=== PATIENT | male | born 1940 | race Caucasian/White ===

== ENCOUNTER → 2018-12-29 08:10 | Outpatient (POV) | payer MEDICARE, SELFPAY | PROVIDERS: Visit Provider Dentist | DX: Z00.00 Encounter for general adult medical examination without abnormal findings (principal) ==

== ENCOUNTER → 2019-12-12 10:49 | Outpatient (CLI) | payer MEDICARE, SELFPAY ==
[2019-12-12 11:32] LABS: Basophils % 0.4 % (0.1-2.0); Hematocrit 42.6 % (42.0-52.0); Hemoglobin 13.9 g/dL (14.1-18.0); Lymphocytes # 1.2 K/mm3 (0.7-4.5); Lymphocytes % 28.3 % (10-50); Mean Corpuscular HGB Conc 32.7 g/dL (31.8-35.4); Mean Corpuscular Hemoglobin 32.7 pg (27.0-31.2); Mean Corpuscular Volume 99.9 fl (80-94); Mean Platelet Volume 8.9 fl (7.4-10.4); Monocytes # 0.2 K/mm3 (0.1-1.0); Monocytes % 5.7 % (1.7-9.3); Neutrophils # 2.7 K/mm3 (1.8-7.8); Neutrophils % 64.5 % (37.0-80.0); Platelet Count 202 K/mm3 (142-424); Red Blood Count 4.27 M/mm3 (4.60-6.20); Red Cell Distribution Width 13.5 % (11.5-17.5); White Blood Count 4.1 K/mm3 (4.8-10.8)
[2019-12-12 14:42] LABS: Alanine Aminotransferase 31 U/L (21-72); Albumin Level 3.7 g/dL (3.4-5.0); Albumin/Globulin Ratio 1.3 (1.1-1.8); Alkaline Phosphatase 45 U/L (46-116); Anion Gap 13.7 mEq/L (5-15); Aspartate Amino Transferase 20 U/L (15-37); Bilirubin,Total 0.5 mg/dL (0.2-1.0); Blood Urea Nitrogen 18 mg/dL (7-18); Calcium 9.2 mg/dL (8.5-10.1); Carbon Dioxide 28 mmol/L (21.0-32.0); Chloride 108 mmol/L (98-107); Chol/HDL Ratio 4.1 (1-3.5); Cholesterol 190 mg/dL (140-200); Creatinine,Serum 1.26 mg/dL (0.70-1.30); Estimated Glomerular Filt Rate 55 ml/min (>60); GFR (African American) 67 ML/MIN (>60); Globulin 2.9 gm/dl (1.3-3.2); Glucose 94 mg/dL (74-106); HDL Cholesterol 46 mg/dL (27-67); LDL Cholesterol 115 mg/dL (0-130); Potassium 4.7 mmoL/L (3.5-5.1); Sodium 145 mmol/L (137-145); T4 (Thyroxine) 3.8 ug/dl (4.7-13.3); Thyroid Stimulating Hormone 2.21 uIU/ml (0.358-3.740); Total Protein,Serum 6.6 g/dL (6.4-8.2); Triglycerides 144 mg/dL (30-200); VLDL Cholesterol 29 mg/dL (0-40)
[2019-12-13 16:29] LABS: PSA, Free 0.15 ng/mL; Prostate Specific Ag 1.6 ng/mL (0.0-4.0); Vitamin B12 453 pg/mL (232-1245)
== END ==
PROVIDERS: PCP Physician Assistant; Visit Provider Physician Assistant
DX: E53.8 Deficiency of other specified B group vitamins (principal); R00.2 Palpitations; I10 Essential (primary) hypertension; J40 Bronchitis, not specified as acute or chronic
CPT/HCPCS: 36415; 80053; 80061; 82607; 84153; 84154; 84436; 84443; 85025; 93225; 93226

== ENCOUNTER → 2020-01-02 07:43 | Outpatient (CLI) | payer SELFPAY ==
--- NOTE | 2020-01-02 07:44 | CT_ITS ---
PROCEDURE: CT HEART W CALCIUM SCORE CLINICAL HISTORY: screening for heart disease COMPARISON: No exams were available for comparison TECHNIQUE: Axial images obtained with sagittal and coronal reformats. All CT scans at the facility use one or more dose reduction, viz: automated exposure control, ma/kV adjustment per patient size (including targeted exams where dose is matched to indication, i.e. head), or iterative reconstruction technique. FINDINGS: The coronary artery calcium score is 376. This indicates a moderate calcific plaque burden with high cardiovascular disease risk. There are fibrotic changes in the lung bases IMPRESSION: Moderate calcific plaque burden with high cardiovascular disease risk Dictated by: Alexis Almaguer MD 01/02/2020 13:37 Electronically signed by Alexis Almaguer MD in [place] 01/02/2020 13:37
== END ==
PROVIDERS: PCP Physician Assistant; Visit Provider Internal Medicine Cardiovascular Disease
DX: Z13.6 Encounter for screening for cardiovascular disorders (principal); R00.2 Palpitations; R94.31 Abnormal electrocardiogram [ECG] [EKG]
CPT/HCPCS: 75571

== ENCOUNTER → 2020-01-02 07:47 | Outpatient (CLI) | payer MEDICARE, SELFPAY ==
--- NOTE | 2020-01-02 07:47 | CA_ITS ---
APPROVED REPORT EXAM: Comprehensive 2D, Doppler, and color-flow Echocardiogram Slip Dumper: Gayle Mooney RVT Ht: 6 ft 1 in Wt: 222lbs BSA: 2.25 BP: 125/80 mmHg Indications: Chest Pain, Palpitations,Abn EKG, Ex Smoker 2D Dimensions LVOT 2.23 cm (M/F) 1.5-2.5 M-Mode Dimensions RVDd 2.80 cm (0.9-2.6) LVDd 3.23 cm (3.5-5.7) LVDs 2.00 cm (3.5-5.7) IVSd 0.98 cm (0.6-1.1) PWd 1.36 cm (0.6-1.1) EF (Teich) 69.70% FS 38.10% EDV (Teich) 41.90 mL ESV (Teich) 12.70 mL LV Diastology E/A Ratio 0.50 Mitral Valve MV A Velocity 66.00 (40-130 cm/s) Left Ventricle Left atrium is mildly enlarged, left ventricle is normal size, mild concentric left ventricular hypertrophy, visually estimated ejection fraction 50%, there appears to be mild distal septal hypokinesis. Grade 1 diastolic dysfunction seen without tissue Doppler evidence of raise left atrial pressure. Right Ventricle Right atrium and right ventricular normal size and contractility. Aortic Valve Aortic valve is minimally thickened and fibrosed, there is no aortic stenosis or aortic insufficiency. Mitral Valve Mitral valve is grossly normal, there is no mitral stenosis, there is mild mitral regurgitation. Tricuspid Valve Tricuspid valve is grossly normal, there is mild tricuspid regurgitation. Tricuspid regurgitation jet velocity is inadequate for calculation of the right ventricular systolic pressure. Pulmonic Valve Pulmonic valve is poorly visualized. Great Vessels Aortic root is normal size. Pericardium No significant pericardial effusion noted. Conclusion 1. Mildly enlarged left atrium, normal left ventricular size, mild concentric left ventricular hypertrophy, visually estimated ejection fraction 50% with mild distal septal wall hypokinesis. Grade 1 diastolic dysfunction seen without tissue Doppler evidence of raise left atrial pressure. 2. Mild mitral and tricuspid regurgitation. 3. No significant pericardial effusion noted. Electronically signed by : Kervin Cyr, 01/03/2020 05:39:26
== END ==
PROVIDERS: PCP Physician Assistant; Visit Provider Internal Medicine Cardiovascular Disease
DX: R00.2 Palpitations (principal); R94.31 Abnormal electrocardiogram [ECG] [EKG]; Z85.46 Personal history of malignant neoplasm of prostate
CPT/HCPCS: 93306

== ENCOUNTER → 2020-04-24 07:08 | Outpatient (CLI) | payer MEDICARE, SELFPAY ==
--- NOTE | 2020-04-24 | CA_ITS ---
APPROVED REPORT Exam: Exercise Treadmill Technologist: Tammie Zuniga Ht: 6 ft 1 in Wt: 220 lbs BSA: 2.24 m2 HR: 60 bpm BP: 151/85 mmHg Indications: Palpitations, Elevated CT Calcium Score Medical History Medications: Aspirin,,,,, Stress Test Details Test: Vernon HR Resting HR: 75 bpm Max Heart Rate (APMHR): 139 bpm Max HR Achieved: 143 bpm Target HR (85% APMHR): 118 bpm % of APMHR: 102 Recovery HR: 85 bpm BP Resting BP: 151.0/85.0 mmHg Max BP: 190.0/80.0 mmHg Recovery BP: 149.0/86.0 mmHg ECG Clinical Exercise duration: 05:30 min Highest Stage Achieved: Exercise capacity: 7.0 METs Stress ECG Conclusion Resting ECG: Normal sinus rhythm. Patient exercised 5:30 on Vernon Protocol. Test stopped due to shortness of air, leg fatigue. Symptoms: No chest pain. Arrhythmias/Ectopy: Frequent isolated PVCs in early recovery. ST-T Changes: Within normal ST response to exercise. Conclusion: Normal GXT. Myoview images reported separately. Electronically signed by : Kervin Cyr, 04/25/2020 10:23:11
--- NOTE | 2020-04-24 07:08 | NM_ITS ---
APPROVED REPORT Exam: Nuclear Stress Test Indication: PALPITATIONS, C.P., ELEVATED CALCIUM SCORE, FORMER TOB USER, FM HX Patient Location: Outpatient Stress Tech: Tammie Zuniga CO Tech:Lisa Marcelino ARRDarlin RT (R)(N)(M) Ht: 6 ft 1 in Wt: 220 lbs HR: 60 bpm BP: 151/85 mmHg BSA: 2.24 m2 BMI: 29.0 History: PALPITATIONS, C.P., ELEVATED CALCIUM SCORE, FORMER TOB USER, FM HX Procedure: Patient exercised on Vernon protocol 5:30 minutes and sec, resting heart rate 60 bpm, resting blood pressure 151/85 mmHg, with exercise maximum heart rate achived was 143 bpm which is Greater than 85 % of the maximum predicted heart rate and blood pressure was 190/80 mmHg. Test was stopped due to SOA, LEG FATIGUE. Patient has Adequate exercise capacity, achieved 7.0 METs of workload on treadmill, the blood pressure response to exercise was Normal. Electrocardiogram Resting electrocardiogram showed sinus rhythm, with exercise there is less than 1.[address] segment depression noted from the baseline EKG. The EKG portion of the exercise Myoview is negative for ischemia. Cardiac Stress and Resting SPECT Images: Cardiac Stress and Resting SPECT images were obtained using technetium 99m Myoview 31.1 mCi stress and 10.61 mCi at rest. Gated SPECT with analysis of segmental wall motion and calculation of the ejection fraction also done. Cardiac stress and resting SPECT images show a fixed defect involving the inferior and posterior wall consistent with the area of myocardial scarring without significant irene-infarct ischemia. Computer derived ejection fraction is 57% with moderate hypokinesis involving the inferior and posterior wall. Right ventricle is normal size and contractility. Conclusion: 1. The EKG portion of the exercise Myoview is negative for ischemia, patient has adequate exercise capacity achieved 7 mets of workload on treadmill, the blood pressure response to exercise was normal, there was no exercise-induced chest discomfort. 2. Scintigraphic evidence of myocardial scarring involving the inferior and posterior wall without significant irene-infarct ischemia, computer derived ejection fraction 57% with segmental wall motion abnormality described above, right ventricle is normal size and contractility. 3. Abnormal exercise Myoview study. Electronically signed by : Kervin Cyr, 04/25/2020 10:27:02
--- NOTE | 2020-04-24 07:24 | HMH.ITSHM ---
Current Home Medications as stated by this patient Atul Tan or desk representative. []asa
== END ==
PROVIDERS: PCP Physician Assistant; Visit Provider Physician Assistant
DX: R00.2 Palpitations (principal); R07.89 Other chest pain; R93.1 Abnormal findings on diagnostic imaging of heart and coronary circulation; Z85.46 Personal history of malignant neoplasm of prostate; Z87.891 Personal history of nicotine dependence
CPT/HCPCS: 78452; 93017; A9502

== ENCOUNTER → 2021-12-25 09:35 | Outpatient (CLI) | payer MEDICARE, SELFPAY ==
[2021-12-25 10:07] LABS: Basophils % 0.5 % (0.1-2.0); Eosinophils # 0.1 K/mm3 (0.0-0.4); Eosinophils % 2.5 % (0.1-12.0); Hematocrit 41.2 % (42.0-52.0); Hemoglobin 13.7 g/dL (14.1-18.0); Lymphocytes # 1.4 K/mm3 (0.7-4.5); Lymphocytes % 29.4 % (10-50); Mean Corpuscular HGB Conc 33.2 g/dL (31.8-35.4); Mean Corpuscular Hemoglobin 32.6 pg (27.0-31.2); Mean Corpuscular Volume 98.3 fl (80-94); Mean Platelet Volume 8.6 fl (7.4-10.4); Monocytes # 0.3 K/mm3 (0.1-1.0); Monocytes % 6.9 % (1.7-9.3); Neutrophils # 2.8 K/mm3 (1.8-7.8); Neutrophils % 60.6 % (37.0-80.0); Platelet Count 195 K/mm3 (142-424); Red Cell Distribution Width 13.3 % (11.5-17.5); White Blood Count 4.7 K/mm3 (4.8-10.8)
[2021-12-25 10:29] LABS: Chloride 104 mmol/L (98-107); Potassium 4.3 mmoL/L (3.5-5.1); Sodium 134 mmol/L (136-145)
[2021-12-25 10:31] LABS: Blood Urea Nitrogen 16 mg/dl (9-20); Estimated Glomerular Filt Rate 58 ml/min (>60); GFR (African American) 70 ML/MIN (>60)
[2021-12-25 10:32] LABS: Alanine Aminotransferase 32 U/L (12-78); Albumin Level 4.3 g/dl (3.5-5.0); Alkaline Phosphatase 49 U/L (38-126); Anion Gap 8.3 mEq/L (5-15); Aspartate Amino Transferase 38 U/L (17-59); Bilirubin,Direct 0.2 mg/dl (0.0-0.4); Bilirubin,Indirect 0.3 mg/dL (0.0-0.9); Bilirubin,Total 0.5 mg/dl (0.2-1.3); Bilirubin,Unconjugated 0.2 mg/dL (0.0-1.1); Calcium 8.6 mg/dl (8.4-10.2); Carbon Dioxide 26 mmol/L (22.0-30.0); Cholesterol 126 mg/dl (140-200); Glucose 97 mg/dl (74-100); Total Protein,Serum 6.8 g/dl (6.3-8.2); Triglycerides 153 mg/dl (30-150); VLDL Cholesterol 31 mg/dL (0-40)
[2021-12-25 10:33] LABS: Chol/HDL Ratio 2.8 (1-3.5); HDL Cholesterol 45 mg/dl (40-60)
[2021-12-25 10:45] LABS: Direct LDL Cholesterol 55.51 mg/dL (100-129)
[2021-12-25 10:51] LABS: Free Thyroxine Index 1.6 ug/dL (5.93-13.13); T4 (Thyroxine) 4.7 ug/dl (5.53-11.0); Triiodothryronine (T3) Uptake 34 % (23.5-40.5)
[2021-12-25 11:04] LABS: Thyroid Stimulating Hormone 4.42 uIU/mL (0.465-4.68)
[2021-12-25 15:12] LABS: Vitamin B12 419 pg/mL (239-931)
== END ==
PROVIDERS: Visit Provider Physician Assistant
DX: I25.10 Atherosclerotic heart disease of native coronary artery without angina pectoris (principal); R93.1 Abnormal findings on diagnostic imaging of heart and coronary circulation; R94.31 Abnormal electrocardiogram [ECG] [EKG]; Z85.46 Personal history of malignant neoplasm of prostate; Z87.891 Personal history of nicotine dependence; E78.5 Hyperlipidemia, unspecified; D53.9 Nutritional anemia, unspecified
CPT/HCPCS: 36415; 80048; 80061; 80076; 82607; 82746; 84436; 84443; 84479; 85025

== ENCOUNTER → 2021-12-29 10:38 | Outpatient (CLI) | payer MEDICARE, SELFPAY ==
--- NOTE | 2021-12-29 10:39 | CA_ITS ---
FINAL REPORT TECHNIQUE: Color Doppler, duplex Doppler and dockery scale sonography of the bilateral neck arterial vasculature was performed. Velocities were measured in the carotid arteries. Stenosis evaluation based on the validated velocity criteria. CLINICAL HISTORY: left carotid bruit, Abn screening exam, HLD FINDINGS: The peak systolic velocity of the right common carotid artery is 85 cm/s. The peak systolic velocity of the right internal carotid artery is 67 cm/s and end diastolic velocity 26 cm/s. The ICA/CCA ratio is 0.76. A mild amount of plaque is present. The right external carotid artery is patent. The right vertebral artery is patent with antegrade flow. The peak systolic velocity of the left common carotid artery is 72 cm/s. The peak systolic velocity of the left internal carotid artery is 79 cm/s and end diastolic velocity 23 cm/s. The ICA/CCA ratio is 1.11. A mild amount of plaque is present. The left external carotid artery is patent.The left vertebral artery is patent with antegrade flow. IMPRESSION: Less than 50% bilateral carotid stenosis. Bilateral patent vertebral arteries with antegrade flow. Reviewed, Interpreted and Dictated by Edouard Bojorquez III, MD Transcribed by Celia Miller Authenticated by Edouard Bojorquez III, MD on 12/29/2021 12:12:[address] [facility]
== END ==
PROVIDERS: PCP Physician Assistant; Visit Provider Physician Assistant
DX: R09.89 Other specified symptoms and signs involving the circulatory and respiratory systems (principal)
CPT/HCPCS: 93880

== ENCOUNTER 2022-06-19 08:54 | Emergency (ER) | payer MEDICARE, SELFPAY ==
[2022-06-19 09:13] VITALS: BP 121/73; PULSE 76; RESP 21; TEMP 36.6; O2SAT 95; BMI 27.4
[2022-06-19 09:21] LABS: UTC Strep Screen (Rapid) Negative (Negative)
--- NOTE | 2022-06-19 09:27 | HMH.EDUTC ---
[facility] Disposition Clinical Impression: Pharyngitis Qualifiers: Pharyngitis/tonsillitis etiology: unspecified etiology Qualified Code(s): J02.9 - Acute pharyngitis, unspecified Disposition: Home, Self-Care Condition on Discharge: Good Instructions: DI for Pharyngitis/Tonsillopharyngitis -- Adult Additional Instructions: Drink plenty of fluids. Take tylenol or ibuprofen for pain or fever. Take the medications as directed. Follow up with your regular doctor. GO TO THE ER FOR ANY WORSENING SYMPTOMS Prescriptions: methylPREDNISolone [Medrol] 4 mg PO DIRECTED 6 Days #21 packet [facility]: [id number] guaiFENesin [Mucinex 600mg tablet] 1 - 2 tab PO BIDP PRN #30 tab PRN Reason: Congestion Transmission Status: [id number] Azithromycin [Z-Brendon 250mg Tab*] 250 mg PO UD DOSE PK #6 tab Transmission Status: [id number] Referrals: Sharmila Du PA [Primary Care Provider] - Time of Disposition: 09:38 Medical Decision Making - Medical Records Medical records reviewed: No: I reviewed the patient's medical records. - Pérez Inquiry Pt receiving controlled substance: No Vital Signs: 06/19/22 09:13 06/19/22 09:45 Temperature 97.9 F 97.9 F Temperature Source Oral Oral Pulse Rate 74 Pulse Rate [Left Radial] 76 Respiratory Rate 21 20 Blood Pressure 119/70 Blood Pressure [Right Arm] 121/73 Blood Pressure Mean [Right Arm] 89 02 Sat by Pulse Oximetry 95 Oxygen Delivery Method Room Air Room Air - Lab Data Lab Results 06/19/22 09:14: Strep Scn Rapid Clinic Negative Orders (Tests/Meds): ORDERS Category Date Time Status Covid-19 Nasal PCR ([facility]) Routine Lab 06/19/22 09:06 Received Strep Screen Confirmation Stat Micro 06/19/22 09:14 Received [facility] HPI - General Stated complaint: sore throat, fatigue Time Seen by Provider: 06/19/22 09:27 Mode of Arrival: Ambulatory Source of Information: Patient Limitations: No Limitations Description of Symptoms (Recalled from Triage Doc. by RN): pt to [facility] c/o sore throat and fatigue x2 days. HEENT Symptoms (Recalled from RN notes): Yes Resp Symptoms (Recalled from RN notes): No Skin Symptoms (Recalled from RN notes): No MS Symptoms (Recalled from RN notes): No Functional Status (Recalled from RN notes): na - History of Present Illness Provider Complaint: He c/o sore throat, sinus congestion, achiness and feeling bad for the past 2 days. He took a home covid-19 test that was negative. - Related Data Previous Rx's Medication Instructions Recorded aspirin 81 mg tablet,delayed 81 mg PO DAILY #30 tab 12/26/20 release atorvastatin 20 mg tablet 20 mg PO DAILY #30 tab 04/06/22 amlodipine 2.5 mg tablet See Rx Instructions .ROUTE 05/27/22 .COMPLEX #20 tab Azithromycin [Z-Brendon 250mg Tab*] 250 mg PO UD DOSE PK #6 tab 06/19/22 guaiFENesin [Mucinex 600mg tablet] 1 - 2 tab PO BIDP PRN #30 tab 06/19/22 methylPREDNISolone [Medrol] 4 mg PO DIRECTED 6 Days #21 06/19/22 packet Allergies Allergy/AdvReac Type Severity Reaction Status Date / Time No Known Allergies Allergy Verified 12/30/21 10:20 - Worker's Comp Is this a Worker's Comp case?: No [facility] History - Hepatitis A Screen Attestation statement:: This patient has been screened for Hepatitis A risk factors. I have reviewed the patient's past medical history: Yes Medical History: Reports:: Cancer, Hyperlipidemia, Hypertension, Palpitations Other Surgeries: Yes: Cancer Surgery Amputation: No Fractures: No - Social History Smoking Status: Former smoker Alcohol Intake: current Alcohol Intake Frequency:: holidays/special occasions only Substance Use Type: denies use Occupational Status: other Housing: house Family Hx:: Hypertension ROS Obtained: Yes All systems reviewed & no additional complaints - Constitutional Constitutional: Reports as per HPI - Eyes Eyes: Denies eye discharge -
[2022-06-19 09:45] VITALS: BP 119/70; PULSE 74; RESP 20; TEMP 36.6; O2SAT 96
== END 2022-06-19 09:46 | disposition home or self-care (01) ==
PROVIDERS: Emergency Provider Nurse Practitioner Family; PCP Physician Assistant
DX: J02.9 Acute pharyngitis, unspecified (principal); R53.83 Other fatigue
CPT/HCPCS: 87880; 99212; C9803; G0463; U0003; U0005

== ENCOUNTER → 2023-01-20 10:06 | Outpatient (CLI) | payer MEDICARE, SELFPAY ==
[2023-01-20 11:12] LABS: Alanine Aminotransferase 28 U/L (12-78); Albumin Level 4.3 g/dl (3.5-5.0); Alkaline Phosphatase 49 U/L (38-126); Aspartate Amino Transferase 38 U/L (17-59); Bilirubin,Direct 0.2 mg/dl (0.0-0.4); Bilirubin,Indirect 0.6 mg/dL (0.0-0.9); Bilirubin,Total 0.8 mg/dl (0.2-1.3); Bilirubin,Unconjugated 0.6 mg/dL (0.0-1.1); Chol/HDL Ratio 2.3 (1-3.5); Cholesterol 108 mg/dl (140-200); HDL Cholesterol 48 mg/dl (40-60); Total Protein,Serum 6.7 g/dl (6.3-8.2); Triglycerides 82 mg/dl (30-150); VLDL Cholesterol 16 mg/dL (0-40)
[2023-01-20 11:23] LABS: Direct LDL Cholesterol 45.69 mg/dL (100-129)
== END ==
PROVIDERS: PCP Physician Assistant; Visit Provider Nurse Practitioner
DX: I11.9 Hypertensive heart disease without heart failure (principal); E78.5 Hyperlipidemia, unspecified; I25.10 Atherosclerotic heart disease of native coronary artery without angina pectoris; R93.1 Abnormal findings on diagnostic imaging of heart and coronary circulation
CPT/HCPCS: 36415; 80061; 80076

== ENCOUNTER → 2023-10-20 23:07 | Outpatient (CLI) | payer MEDICARE, SELFPAY ==
[2023-10-20 18:15] LABS: Influenza A, PCR Not Detected (NotDetected); Influenza B, PCR Not Detected (NotDetected)
[2023-10-20 18:32] LABS: Basophils % 0.6 % (0.1-2.0); Eosinophils # 0.1 K/mm3 (0.0-0.4); Eosinophils % 2.2 % (0.1-12.0); Hematocrit 41.4 % (42.0-52.0); Lymphocytes # 1.3 K/mm3 (0.7-4.5); Lymphocytes % 20.4 % (10-50); Mean Corpuscular HGB Conc 33.7 g/dL (31.8-35.4); Mean Corpuscular Hemoglobin 33.9 pg (27.0-31.2); Mean Corpuscular Volume 100.6 fl (80-94); Mean Platelet Volume 10.4 fl (7.4-10.4); Monocytes # 0.8 K/mm3 (0.1-1.0); Monocytes % 12.1 % (1.7-9.3); Neutrophils # 4.1 K/mm3 (1.8-7.8); Neutrophils % 64.6 % (37.0-80.0); Platelet Count 183 K/mm3 (142-424); Red Blood Count 4.12 M/mm3 (4.60-6.20); Red Cell Distribution Width 13.5 % (11.5-17.5); White Blood Count 6.3 K/mm3 (4.8-10.8)
[2023-10-20 18:48] LABS: Alanine Aminotransferase 30 U/L (12-78); Albumin Level 4.4 g/dl (3.5-5.0); Albumin/Globulin Ratio 1.6 (1.1-1.8); Alkaline Phosphatase 65 U/L (38-126); Anion Gap 9.7 mEq/L (5-15); Aspartate Amino Transferase 38 U/L (17-59); Bilirubin,Total 0.4 mg/dl (0.2-1.3); Blood Urea Nitrogen 18 mg/dl (9-20); Calcium 9.4 mg/dl (8.4-10.2); Carbon Dioxide 26 mmol/L (22.0-30.0); Chloride 103 mmol/L (98-107); Chol/HDL Ratio 3.4 (1-3.5); Cholesterol 138 mg/dl (140-200); Estimated Glomerular Filt Rate 58 ml/min (>60); GFR (African American) 70 ML/MIN (>60); Globulin 2.8 g/dL (1.3-3.2); Glucose 101 mg/dl (74-100); HDL Cholesterol 41 mg/dl (40-60); Potassium 4.7 mmoL/L (3.5-5.1); Sodium 134 mmol/L (136-145); Total Protein,Serum 7.2 g/dl (6.3-8.2); Triglycerides 118 mg/dl (30-150); VLDL Cholesterol 24 mg/dL (0-40)
[2023-10-20 19:21] LABS: Direct LDL Cholesterol 72.72 mg/dL (100-129)
[2023-10-20 19:26] LABS: Free T4 (Free Thyroxine) 0.78 ng/dl (0.78-2.19)
[2023-10-20 19:40] LABS: Thyroid Stimulating Hormone 3.23 uIU/mL (0.465-4.68)
[2023-10-20 20:11] LABS: Coronavirus 19, PCR Detected (NotDetected)
== END ==
LOC: LAB.DROPOF 23:08
PROVIDERS: PCP Physician Assistant; Visit Provider Family Medicine
DX: J40 Bronchitis, not specified as acute or chronic (principal); I25.10 Atherosclerotic heart disease of native coronary artery without angina pectoris; E78.5 Hyperlipidemia, unspecified; U07.1 COVID-19; R05.9 Cough, unspecified; R06.7 Sneezing; R53.83 Other fatigue; J02.9 Acute pharyngitis, unspecified
CPT/HCPCS: 80053; 80061; 84439; 84443; 85025; 87636

== ENCOUNTER 2024-04-06 16:38 | Emergency (ER) | payer MEDICARE, SELFPAY ==
[2024-04-06 16:39] VITALS: BP 123/73; PULSE 120; RESP 18; TEMP 36.7; O2SAT 96; BMI 28.3
--- NOTE | 2024-04-06 16:43 | ECG_ITS ---
APPROVED REPORT Exam: Resting ECG HR:107 bpm ECG Measurements Heart Rate 107 AXES QRSd 109 QRS 28 QT 325 T 45 QTc 388 Conclusion ATRIAL FLUTTER/TACHYCARDIA WITH RAPID VENTRICULAR RESPONSE Electronically signed by : STEPHANIE HURT, 04/06/2024 23:45:00
[2024-04-06 16:45] VITALS: BP 123/73; PULSE 61; RESP 14; O2SAT 96
--- NOTE | 2024-04-06 16:45 | PC.NURSE ---
DR HURT AT BEDSIDE
--- NOTE | 2024-04-06 16:54 | XR_ITS ---
PROCEDURE INFORMATION: Exam: XR Chest Exam date and time: 04/06/2024 4:54 PM Age: 83 years old Clinical indication: Shortness of breath; Additional info: Palpitations, SOA TECHNIQUE: Imaging protocol: Radiologic exam of the chest. Views: 1 view. COMPARISON: CT HEART W CALCIUM SCORE 01/02/2020 8:06 AM FINDINGS: Lungs: Unremarkable. No consolidation. Pleural spaces: Unremarkable. No pleural effusion. No pneumothorax. Heart/Mediastinum: Unremarkable. No cardiomegaly. Bones/joints: Unremarkable. IMPRESSION: No acute findings.
--- NOTE | 2024-04-06 16:55 | HMH.EDGENADL ---
Discharge Plan Disposition Patient Disposition: Home, Self-Care Condition: Good Prescriptions Prescriptions: New Xarelto 20 mg tablet 20 mg PO DAILY Qty: 30 0RF Rx Instructions: must administer with evening meal diltiazem HCl 240 mg capsule,extended release 24 hr 240 mg PO DAILY Qty: 30 0RF No Action aspirin [Adult Low Dose Aspirin] 81 mg tablet,delayed release (DR/EC) 81 mg PO DAILY Qty: 30 5RF tqtlwbeknnqesgk-kefxfocru-VG [Bromfed DM] 2-30-10 mg/5 mL syrup 10 ml PO Q6H Qty: 118 0RF methylprednisolone [Medrol (Brendon)] 4 mg tablets,dose pack See Rx Instructions PO PER PKG DIR Qty: 21 0RF Rx Instructions: PO PER PKG DIR atorvastatin [Lipitor] 20 mg tablet 20 mg PO DAILY Qty: 90 3RF amlodipine 2.5 mg tablet 2.5 mg PO DAILY Qty: 90 3RF Referrals Follow up/Referrals: Sharmila Du PA [Primary Care Provider] - See instructions Niall Neumann MD [Staff Physician] - See instructions Gonzales Canas MD [Staff Physician] - See instructions Activity Restrictions/Add. Instructions Additional Instructions/Restrictions: You were evaluated in the emergency department today and diagnosed with atrial fibrillation. This is an irregular heartbeat. For this, we are prescribing you diltiazem, which slows down your heart rate. We are also prescribing you Xarelto, which thins your blood to prevent stroke. Please follow-up tomorrow in cardiology clinic at 10:[address] Neumann has advised they will see you at that time. Please bulk picker your prescriptions at the pharmacy and take them daily as prescribed. You were already given your doses today on 04/06/2024, so do not take any doses today. Monitor for any symptoms, such as chest pain, shortness of breath, lightheadedness, fainting, or other concerns. Should you develop any of the symptoms, please return to the emergency department right away. Being on a blood thinner increases your risk of bleeding, such as head bleeds and bleeding from traumatic injuries as well as bleeding in your stools from your intestines. Please monitor for any sources of bleeding and present to the emergency department right away if you experience any falls or traumatic injuries. Your kidney function was slightly off from your baseline, so please make sure that you are staying well-hydrated. This is probably because of the issue with your heart, but I recommend getting this rechecked by either your primary care provider or cardiology. Please return to the emergency department if you have any new concerns. We hope you feel better! Clinical Impressions Clinical Impression: Atrial fibrillation, MARGO (acute kidney injury) Instructions Patient Instructions: DI for Atrial Fibrillation, Rivaroxaban Discharge ED Provider: Cathryn Newman General Adult HPI General Chief complaint: Arrhythmia/Palpitations Stated complaint: weak, chest tightness Time Seen by Provider: 04/06/24 16:43 History of Present Illness HPI narrative: This patient is an 83-year-old male with a history of hypertension and hyperlipidemia not on anticoagulation presenting with concern for palpitations. He states for about 2-1/2 weeks, he is intermittently been having sensation that his heart is racing. He also states that he has significant dyspnea on exertion, even with minimal exertion, which is very much unlike him. He notes he is feeling very tired and fatigued. He states that he follows closely with cardiology every year and has never had issues like this in the past, but they did tell him to monitor for things like this. He denies any fevers, cough, abdominal pain, vomiting, changes in bowel movements, rashes, or swelling. No history of blood clots or clotting disorders. He does note some chest tightness associated with this. He denies any known history of cardiac dysrhythmias. Related Data Previous Rx's Medication Instructions Recorded aspirin 81 mg tablet,delayed 81 mg PO DAILY #30 tabs 12/26/20 release (Adult Low Dose Aspirin) atorvastatin 20 mg tablet (Lipitor) 20 mg PO DAILY #90 tabs 10/20/23 gezmnxadwsknojp-eezwijhuwknrwvh-GY 10 ml PO Q6H #118 mL 10/20/23 2 mg-30 mg-10 mg/5 mL oral syrup (Bromfed DM) methylprednisolone 4 mg tablets in See Rx Instructions PO PER PKG DIR 10/20/23 a dose pack (Medrol (Brendon)) #21 tabs amlodipine 2.5 mg tablet 2.5 mg PO DAILY #90 tabs 12/06/23 diltiazem HCl 240 mg capsule,24 240 mg PO DAILY #30 caps 04/06/24 hr,extended release rivaroxaban 20 mg tablet (Xarelto) 20 mg PO DAILY #30 tabs 04/06/24 Allergies Allergy/AdvReac Type Severity Reaction Status Date / Time No Known Allergies Allergy Verified 10/20/23 08:59 [facility] Disclaimer: The information contained in this section may have been updated after the patient was seen, as this information can be updated by other users. Medical History Dizziness Pharyngitis Agatston coronary artery calcium score between 200 and 399 Ex-smoker Atypical chest pain Abnormal EKG Hx of prostatic malignancy Palpitations Bronchitis Surgical History History of prostate surgery Social History Smoking Status: Never smoker alcohol intake: current alcohol intake frequency: holidays/special occasions only substance use type: denies use current occupational status: other Travel in the last 8 weeks: Inside the [facility] housing: house ROS Obtained: Yes All systems reviewed & no additional complaints except as documented Physical Exam General General appearance: alert and in no apparent distress Head Head exam: atraumatic and normocephalic Eye Eye exam: Present normal appearance, PERRL and EOMI ENT ENT exam: Present normal exam, normal oropharynx, mucous membranes moist and normal external ear exam Neck Neck exam: Present normal inspection, full ROM and trachea midline; Absent tenderness Chest Chest inspection: Present normal inspection and symmetric chest wall rise; Absent tenderness Respiratory Respiratory exam: Present normal lung sounds bilaterally; Absent respiratory distress, wheezes, stridor or accessory muscle use Cardiovascular Cardiovascular exam: Present tachycardia and irregular rhythm Abdominal Exam Abdominal exam: Present soft; Absent distention, tenderness or guarding Extremities Exam Extremities exam: Present normal inspection, full ROM and normal capillary refill; Absent tenderness or edema Back Exam Back exam: Present normal inspection and full ROM; Absent tenderness Neurological Exam Neurological exam: Present alert, oriented X3, CN II-XII intact and normal gait; Absent motor sensory deficit Psychiatric Psychiatric exam: Present normal affect and normal mood Skin Skin exam: Present warm and dry Medical Decision Making Medical Records Medical records reviewed: Yes I reviewed the patient's medical records. Pérez Inquiry Pt receiving controlled substance: No Vital Signs: 04/06/24 16:39 04/06/24 16:45 04/06/24 17:00 Temperature 98.1 F Temperature Source Oral Pulse Rate 61 138 H Pulse Rate [Apical] 120 H Respiratory Rate 18 14 18 Blood Pressure 123/73 112/64 Blood Pressure [Right Arm] 123/73 Blood Pressure Mean [Right Arm] 89 Blood Pressure Source [Right Arm] Automatic Cuff Blood Pressure Position [Right Arm] Sitting 02 Sat by Pulse Oximetry 96 96 95 Oxygen Delivery Method Room Air 04/06/24 17:30 04/06/24 17:45 Temperature Temperature Source Pulse Rate 71 68 Pulse Rate [Apical] Respiratory Rate 13 10 L Blood Pressure 107/65 L 106/66 L Blood Pressure [Right Arm] Blood Pressure Mean [Right Arm] Blood Pressure Source [Right Arm] Blood Pressure Position [Right Arm] 02 Sat by Pulse Oximetry 97 96 Oxygen Delivery Method Room Air Lab Data Lab results reviewed: Yes I reviewed the patient's lab results. Lab Results 04/06/24 16:50: WBC 5.4, RBC 4.13 L, Hgb 13.5 L, Hct 42.2, MCV 102.2 H, MCH 32.7 H, MCHC 32.0, RDW 13.8, Plt Count 200, MPV 8.9, Neut % (Auto) 57.1, Lymph % (Auto) 33.7, [place] % (Auto) 6.3, Eos % (Auto) 2.0, Baso % (Auto) 0.9, Neut # (Auto) 3.1, Lymph # (Auto) 1.8, [place] # (Auto) 0.3, Eos # (Auto) 0.1, Baso # (Auto) 0.1, PT 12.1, INR 1.13 H, APTT 29.3, D-Dimer 0.56 H, Sodium 137, Potassium 4.2, Chloride 107, Carbon Dioxide 20 L, Anion Gap 14.2, BUN 21 H, Creatinine 1.50 H, Estimated Creat Clear 50, Estimated GFR 44 L, Est GFR ( Amer) 54 L, Glucose 102 H, Calcium 9.5, Magnesium 2.0, Total Bilirubin 0.6, AST 34, ALT 28, Alkaline Phosphatase 55, Troponin I < 0.01, NT-Pro-B Natriuret Pep 38.1, Total Protein 7.3, Albumin 4.4, Globulin 2.9, Albumin/Globulin Ratio 1.5, TSH 3.99, Thyroxine (T4) 6.3 04/06/24 16:50 04/06/24 16:50 Orders (Tests/Meds): ED MEDICATIONS Discontinued Medications Generic Name Dose Route Start Last Admin Trade Name Henriqueq PRN Reason Stop Dose Admin Diltiazem HCl 10 mg 04/06/24 17:05 04/06/24 17:11 Diltiazem 25mg/5ml Vial IV 04/06/24 17:06 10 mg ONCE ONE Administration Diltiazem HCl 240 mg 04/06/24 17:20 04/06/24 17:34 Diltiazem Er 120mg Capsule PO 04/06/24 17:21 240 mg ONCE ONE Administration Rivaroxaban 20 mg 04/06/24 17:20 04/06/24 17:34 Rivaroxaban 10mg Tablet PO 04/06/24 17:21 20 mg ONCE ONE Administration ORDERS Category Date Time Status CXR --portable [XR chest portable] Stat Exams 04/06/24 16:54 Completed BNP [NT Pro Brain Natriuretic Pep.] Stat Lab 04/06/24 16:50 Completed Complete Blood Count Auto Diff Stat Lab 04/06/24 16:50 Completed Comprehensive Metabolic Panel Stat Lab 04/06/24 16:50 Completed D-Dimer Stat Lab 04/06/24 16:50 Completed Magnesium Stat Lab 04/06/24 16:50 Completed PT INR [Prothrombin Time INR] Stat Lab 04/06/24 16:50 Completed PTT [Activated Partial Thrombo Time] Stat Lab 04/06/24 16:50 Completed T4 (Thyroxine) Stat Lab 04/06/24 16:50 Completed TSH [Thyroid Stimulating Hormone] Stat Lab 04/06/24 16:50 Completed Trop I [Troponin I] Stat Lab 04/06/24 16:50 Completed Troponin I Q3H Lab 04/06/24 19:15 Received Troponin I Q3H Lab 04/06/24 23:00 Ordered ECG Data Tracing #1: I reviewed this ECG and interpreted as documented below: Atrial tachycardia with RVR with a ventricular rate of [address] changes concerning for ischemia. ECG initial impression date: 04/06/24 ECG initial impression time: 16:45 Tracing #2: I reviewed this ECG and interpreted as documented below: Atrial fibrillation with a ventricular rate of [address] changes concerning for ischemia. PVC noted. ECG initial impression date: 04/06/24 ECG initial impression time: 17:27 Tracing #3: I reviewed this ECG and interpreted as documented below: Sinus rhythm with a ventricular rate of 67 bpm. First-degree AV block with a NV interval of [address] changes concerning for ischemia. ECG initial impression date: 04/06/24 ECG initial impression time: 17:36 HEART Score History (anamnesis): Slightly suspicious ECG: Non-specific disturbance Age: >65 years Risk factors: 1-2 risk factors Troponin: </= normal limit HEART Score: 4 Medical Decision Narrative: In summary, this patient is a 83 year old male presenting to the Emergency Department for evaluation of palpitations, dyspnea on exertion, and chest tightness. Differential diagnoses considered include but are not limited to ACS, dysrhythmia, GERD, costochondritis, electrolyte derangements, PE. Ruling out the most morbid conditions drove assessment. It should be noted patient's history includes hypertension and hyperlipidemia which are reportedly at goal therapy. This complicates all aspects of care by increasing patient's risk for morbidity. I reviewed patient's past medical records and noted previous cardiology evaluation back in August 23 with no mention of prior dysrhythmia at that time. I reviewed patient's medication list and noted that he is not on anticoagulation. He does take amlodipine and atorvastatin as well as half a baby aspirin.. On exam, the patient is resting comfortably in bed in no acute distress. He has an irregularly irregular heartbeat with heart rate ranging from the low 100s to 130 on cardiac telemetry s. He is otherwise hemodynamically stable. EKG demonstrates irregularly irregular rhythm with some flutter P waves noted. No acute ST changes concerning for ischemia. Workup included CBC, CMP, TSH, T4, BNP, magnesium, troponin, PT, PTT, chest x-ray. I independently interpreted chest x-ray prior to the radiologist read and noted pulmonary edema, focal consolidation, or other concerns. Please see their read for final interpretation. Labs were obtained that demonstrated very mild MARGO with creatinine of 1.5 from a baseline of 1.2. Labs otherwise reassuring. Initial troponin is negative. Age adjusted D-dimer negative. Patient was given 10 mg of IV diltiazem for atrial tachycardia with rapid ventricular response. Initially, he had changed to a rate controlled atrial fibrillation with a rate of 72 bpm. On repeat ECG afterward, he had converted to a normal sinus rhythm with a first-degree AV block with a NV interval of 217 ms. He remained hemodynamically stable without significant change in his blood pressure throughout this time. I called and had an interactive discussion with corporate bond trader, Dr. Neumann. He advised that since the patient had such good response to diltiazem, we can give him 2 and 40 mg of oral diltiazem as well as 20 mg of oral Xarelto and have him follow-up at 10 AM in clinic tomorrow. Patient is agreeable with this. I would like to watch the patient a little bit longer to make sure that he tolerates his medications well. I had a very long discussion with the patient regarding the risk of starting anticoagulation with Xarelto. [id number] score is 3, which is moderate high risk for stroke with atrial fibrillation. Has bled score for major bleeding is 1 given patient's age. He has no history of bleeding in the past, no history of coagulopathy, no significant liver or kidney history. Blood pressure is very well-controlled. After discussion of risk versus benefit, patient would like to proceed with anticoagulation to minimize risk of stroke based on cardiology recommendations. At 1745, patient was placed in ED observation status pending second troponin and monitoring of his hemodynamic status to determine whether or not the patient would be appropriate for discharge versus admission. The patient was provided serial reevaluations and cardiac monitoring while awaiting ultimate disposition. At 1930, second troponin resulted as negative. Patient has been resting comfortably in normal sinus rhythm with heart rate in the 60s to 70s. He has been normotensive with maps in the 70s. He is asymptomatic and is resting comfortably, eating and drinking without difficulty. Given reassuring workup and exam and the fact that he has close follow-up with cardiology tomorrow, I feel that the patient is appropriate for discharge home with prescriptions for Xarelto and diltiazem. I given very strict return precautions and advised him of symptoms to look out for with regards to bleeding on Xarelto as well as with regards to palpitations, lightheadedness, or symptoms of low blood pressure while on diltiazem. Patient was given strict return precautions and was discharged with plan to see cardiology in the morning. Total ED observation time was 1 hour 45 minutes. Critical Care Critical Care Time Critical Care Time: Yes Attestation: On 04/06/24, the high probability of a clinically significant, sudden or life threatening deterioration of the following system(s) required my full and direct attention, intervention and personal management. The time I documented below is in addition to time spent performing reported procedures but includes the following listed in this critical care notation. Total Time Total Critical Care Time: 30
[2024-04-06 17:00] VITALS: BP 112/64; PULSE 138; RESP 18; O2SAT 95
[2024-04-06 17:01] LABS: Basophils # 0.1 K/mm3 (0-0.2); Basophils % 0.9 % (0.1-2.0); Eosinophils # 0.1 K/mm3 (0.0-0.4); Hematocrit 42.2 % (42.0-52.0); Hemoglobin 13.5 g/dL (14.1-18.0); Lymphocytes # 1.8 K/mm3 (0.7-4.5); Lymphocytes % 33.7 % (10-50); Mean Corpuscular Hemoglobin 32.7 pg (27.0-31.2); Mean Corpuscular Volume 102.2 fl (80-94); Mean Platelet Volume 8.9 fl (7.4-10.4); Monocytes # 0.3 K/mm3 (0.1-1.0); Monocytes % 6.3 % (1.7-9.3); Neutrophils # 3.1 K/mm3 (1.8-7.8); Neutrophils % 57.1 % (37.0-80.0); Platelet Count 200 K/mm3 (142-424); Red Blood Count 4.13 M/mm3 (4.60-6.20); Red Cell Distribution Width 13.8 % (11.5-17.5); White Blood Count 5.4 K/mm3 (4.8-10.8)
[2024-04-06 17:04] LABS: Chloride 107 mmol/L (98-107); Potassium 4.2 mmoL/L (3.5-5.1); Sodium 137 mmol/L (136-145)
[2024-04-06 17:07] LABS: Alanine Aminotransferase 28 U/L (12-78); Albumin Level 4.4 g/dl (3.5-5.0); Albumin/Globulin Ratio 1.5 (1.1-1.8); Alkaline Phosphatase 55 U/L (38-126); Anion Gap 14.2 mEq/L (5-15); Aspartate Amino Transferase 34 U/L (17-59); Bilirubin,Total 0.6 mg/dl (0.2-1.3); Blood Urea Nitrogen 21 mg/dl (9-20); Calcium 9.5 mg/dl (8.4-10.2); Carbon Dioxide 20 mmol/L (22.0-30.0); Estimated Glomerular Filt Rate 44 ml/min (>60); GFR (African American) 54 ML/MIN (>60); Globulin 2.9 g/dL (1.3-3.2); Glucose 102 mg/dl (74-100); Total Protein,Serum 7.3 g/dl (6.3-8.2)
[2024-04-06 17:10] LABS: Activated Partial Thrombo Time 29.3 seconds (22.8-30.6); INR 1.13 (0.9-1.1); Prothrombin Time 12.1 seconds (10.1-12.5)
[2024-04-06] MEDS: dilTIAZem 25MG/5ML VIAL 10 MG IV (17:11)
[2024-04-06 17:16] LABS: Creatinine Clearance Estimated 50 mL/min (50-200)
[2024-04-06 17:18] LABS: NT Pro Brain Natriuretic Pep. 38.1 pg/mL (0-450)
--- NOTE | 2024-04-06 17:19 | PC.NURSE ---
DR HURT SPEAKING WITH CARDIOLOGY
--- NOTE | 2024-04-06 17:21 | PC.NURSE ---
DR HURT AT BEDSIDE TO UPDATE PT
[2024-04-06 17:25] LABS: T4 (Thyroxine) 6.3 ug/dl (5.53-11.0)
--- NOTE | 2024-04-06 17:26 | ECG_ITS ---
APPROVED REPORT Exam: Resting ECG HR:72 bpm ECG Measurements Heart Rate 72 AXES QRSd 104 QRS 42 QT 378 T 39 QTc 402 Conclusion ATRIAL FIBRILLATION WITH ABERRANT CONDUCTION OR VENTRICULAR PREMATURE COMPLEXES ABNORMAL RHYTHM ECG Electronically signed by : STEPHANIE HURT, 04/06/2024 23:44:41
[2024-04-06 17:28] LABS: Troponin I < 0.01 ng/ml (0.00-0.034)
[2024-04-06 17:30] VITALS: BP 107/65; PULSE 71; RESP 13; O2SAT 97
[2024-04-06] MEDS: RIVAROXABAN 10MG TABLET 20 MG PO (17:34)
[2024-04-06] MEDS: dilTIAZem ER 120MG CAPSULE 240 MG PO (17:34)
--- NOTE | 2024-04-06 17:36 | ECG_ITS ---
APPROVED REPORT Exam: Resting ECG HR:67 bpm ECG Measurements Heart Rate 67 AXES WI 217 P 45 QRSd 103 QRS 19 QT 376 T 36 QTc 392 Conclusion SINUS RHYTHM WITH FIRST DEGREE AV BLOCK ABNORMAL ECG Electronically signed by : STEPHANIE HURT, 04/06/2024 23:44:32
[2024-04-06 17:38] LABS: Thyroid Stimulating Hormone 3.99 uIU/mL (0.465-4.68)
[2024-04-06 17:45] VITALS: BP 106/66; PULSE 68; RESP 10; O2SAT 96
[2024-04-06 17:56] LABS: D-Dimer 0.56 ug/mL (0.0-0.5)
--- NOTE | 2024-04-06 19:33 | PC.NURSE ---
Pt updated on status, awaiting 2nd trop, no needs at this time
[2024-04-06 19:43] VITALS: BP 107/65; PULSE 68; RESP 16; TEMP 36.7; O2SAT 97
[2024-04-06 19:44] LABS: Troponin I < 0.01 ng/ml (0.00-0.034)
== END 2024-04-06 19:43 | disposition home or self-care (01) ==
PROVIDERS: Emergency Provider Emergency Medicine; PCP Physician Assistant
DX: I48.91 Unspecified atrial fibrillation (principal); I49.3 Ventricular premature depolarization; I44.0 Atrioventricular block, first degree; N17.8 Other acute kidney failure; I10 Essential (primary) hypertension; E78.5 Hyperlipidemia, unspecified
CPT/HCPCS: 71045; 80053; 83735; 83880; 84436; 84443; 84484; 85025; 85378; 85610; 85730; 93005; 96374; 99285

== ENCOUNTER 2024-04-07 10:21 | Outpatient (CLI) | payer MEDICARE, SELFPAY | END 2024-04-07 23:59 | disposition home or self-care (01) | LOC: RT 10:22 | PROVIDERS: PCP Physician Assistant; Visit Provider Nurse Practitioner | DX: R00.2 Palpitations (principal); I10 Essential (primary) hypertension; I25.10 Atherosclerotic heart disease of native coronary artery without angina pectoris; R93.1 Abnormal findings on diagnostic imaging of heart and coronary circulation; R94.31 Abnormal electrocardiogram [ECG] [EKG]; R06.00 Dyspnea, unspecified; I48.91 Unspecified atrial fibrillation | CPT/HCPCS: 93270 ==

== ENCOUNTER 2024-04-10 07:51 | Outpatient (CLI) | payer MEDICARE, SELFPAY ==
--- NOTE | 2024-04-10 07:56 | CT_ITS ---
FINAL REPORT TECHNIQUE: Postcontrast axial images of the chest were performed in a CTA protocol. This study was performed with techniques to keep radiation doses as low as reasonably achievable, (ALARA). Individualized dose reduction technique using automated exposure control or adjustment of mA and/or kV according to the patient's size were employed. CLINICAL HISTORY: elevated d dimer FINDINGS: The heart is normal in size. No adenopathy is identified. No pleural or pericardial effusion is identified. The thoracic aorta is normal in caliber with no focal aneurysm or dissection identified. There is no filling defect to suggest pulmonary embolism. There is a calcified granuloma in the left upper lobe. There is mild bibasilar atelectasis or scarring. The lungs are otherwise clear. The images of the upper abdomen are unremarkable. IMPRESSION: No evidence for PE on this exam. Mild bibasilar atelectasis or scarring. Reviewed, Interpreted and Dictated by Edouard Bojorquez III, MD Transcribed by Mari Ware Authenticated and [facility]
[2024-04-10] MEDS: 0.9 % SODIUM CHLORIDE 50 ML VIAL IV (08:34)
[2024-04-10] MEDS: SODIUM CHLORIDE 0.9% 10ML SYR (RAD ONLY) 10 ML IV ×3 (08:34→14:04)
[2024-04-10] MEDS: IOPAMIDOL-370 (76%);100ML BOTTLE 70 ML IV (08:34)
--- NOTE | 2024-04-10 12:49 | NM_ITS ---
APPROVED REPORT Exam: Nuclear Stress Test Indication: FM HX, SOB, PALPITATIONS, FATIGUE Patient Location: Outpatient Stress Tech: Tammie Zuniga NM Tech:Anahy Pak, ARRT, RT (R)(N) Ht: 6 ft 1 in Wt: 215 lbs HR: 64 bpm BP: 134/80 mmHg BSA: 2.22 m2 TID: 1.21 BMI: 28.3 History: FM HX, SOB, PALPITATIONS, FATIGUE Procedure: Patient received 0.4 mg of intravenous AdenosineLexiscan, resting heart rate 64 bpm, resting blood pressure 134/80 mmHg, with Lexiscan maximum heart rate achieved was 93 bpm which is % of the maximum predicted heart rate and blood pressure was 134/80 mmHg. With Lexiscan, patient denied any complaint of chest pain. Cardiac Stress and Resting SPECT Images: Cardiac Stress and Resting SPECT images were obtained using technetium 99m Myoview 32.0 mCi stress and 10.19 mCi at rest. Raw images demonstrate significant diaphragmatic overlap with the inferior border of the LV jacobs. This may affect the diagnostic interpretation of the study findings. Resting and stress imaging in supine positions demonstrate a large sized, moderate, fixed perfusion defect in the inferior LV wall. This is no longer visualized with prone stress imaging. Findings are suggestive of diaphragmatic attenuation. There is also increase in transient ischemic dilatation ratio (TID 1.21), suggestive of possible multivessel disease or balanced ischemia. Gated imaging demonstrates normal global and regional LV systolic function. LVEF is calculated at 53%. Conclusion: Diaphragmatic attenuation is present. No focal fixed or reversible perfusion defects. Increase in transient ischemic dilatation ratio (TID 1.21), suggestive of possible multivessel disease or balanced ischemia. Gated imaging demonstrates normal global and regional LV systolic function. LVEF is calculated at 53%. Electronically signed by : Laura Canas MD 04/11/2024 14:45:26
--- NOTE | 2024-04-10 12:54 | CA_ITS ---
APPROVED REPORT EXAM: Comprehensive 2D, Doppler, and color-flow Echocardiogram Brand Communications Manager: Sully Mcnamara RDCS Ht: 6 ft 1 in Wt: 214lbs BSA: 2.21 BP: 94/58 mmHg Indications: ABN EKG,AF,HTN,HLP,PALPS M-Mode Dimensions RVDd 2.47 cm (0.9-2.6) LA Diam 3.43 cm (1.9-4.0) LVDd 5.43 cm (3.5-5.7) LVDs 3.23 cm (3.5-5.7) IVSd 0.76 cm (0.6-1.1) PWd 0.57 cm (0.6-1.1) EF (Teich) 70.70% FS 40.50% EDV (Teich) 143.10 mL ESV (Teich) 41.90 mL LV Diastology E Decel Time 283 (160-240 msec) E/A Ratio 0.5 Mitral Valve MV E Max Jose Luis. 37.0 (40-130 cm/s) MV A Velocity 73.0 (40-130 cm/s) E/A Ratio 0.51 MV PHT 83.0 ms Left Ventricle The left ventricle is normal size. The left ventricular systolic function is normal. The left ventricular ejection fraction is within the normal range. Proximal septal thickening is noted. There is normal LV segmental wall motion. The left ventricular diastolic function is normal. LVEF is 55%. Right Ventricle Right ventricle is moderately dilated. Right ventricle is mildly hypokinetic. The RV wall thickness is increased. Atria The left atrium size is normal. The right atrium is mildly dilated. There is no Doppler evidence of interatrial shunt. Aortic Valve The aortic valve opens well. There is no aortic valvular stenosis. No aortic regurgitation is present. Mitral Valve The mitral valve is normal in structure. No evidence of mitral valve stenosis. There is no mitral valve regurgitation noted. Tricuspid Valve Trace tricuspid regurgitation. There is insufficient TR jet to estimate RVSP. Pulmonic Valve The pulmonary valve is normal in structure. Trace pulmonic regurgitation. Great Vessels The aortic root is borderline dilated measuring 4.2 cm in diameter. The ascending aorta is not well-visualized. IVC is normal in size and collapses >50% with inspiration. Pericardium There is no pericardial effusion. Conclusion Normal LV systolic function. Moderate RV dilation with mild reduction in RV function. No significant valvular stenosis or regurgitation. Electronically signed by : Laura Canas MD 04/12/2024 11:05:29
[2024-04-10] MEDS: REGADENOSON 0.4MG/5ML SYRINGE 0.400000000000000022 MG IV (14:03)
[2024-04-10] MEDS: ISOTOPE MYOVIEW (PER STUDY) 1 DOSE IV (14:04)
--- NOTE | 2024-04-10 14:08 | CA_ITS ---
APPROVED REPORT Exam: Pharmacologic Technologist: Mona Bee, Ht: 6 ft 1 in Wt: 214 lbs BSA: 2.21 m2 HR: 64 bpm BP: 134/80 mmHg Rhythm: NSR Medical History Medications: Aspirin,,,,, Atorvastatin,,,,, XaRELTO,,,,, DilTiazem HCI ER,,,,, Stress Test Details Test: LEXISCAN Reason for pharmacologic stress test: physical limitation. HR Resting HR: 64 bpm Max Heart Rate (APMHR): 135 bpm Max HR Achieved: 93 bpm Target HR (85% APMHR): 115 bpm % of APMHR: 69 Recovery HR: 81 bpm BP Resting BP: 134.0/80.0 mmHg Max BP: 134.0/80.0 mmHg Recovery BP: 125.0/65.0 mmHg ECG Resting ECG: NSR Stress ECG: No significant ST changes Arrhythmia: None Clinical Exercise duration: 04:03 min Highest Stage Achieved: Stress ECG Conclusion Symptoms: No Chest pain Arrhythmias/Ectopy: None ST-T Changes: None Conclusion: Unremarkable Lexiscan stress. Myoview images reported separately. Test Summary REST . . . . . . . Resting REST 15:10 . . 64 . 134/ 80 . . Stage 1 01:00 . . 80 . . . . Stage 2 01:00 . . 91 . 118/ 58 . . Stage 3 01:00 . . 84 . 117/ 63 . . Stage 4 01:00 . . 84 . 103/ 64 . . Stage 4 01:03 . . 84 . 103/ 64 . Stop exercise at 04:03 RECOVERY 01:00 . . 81 . 125/ 65 . . RECOVERY 01:07 . . 79 . 125/ 65 . . Electronically signed by : Laura Canas MD 04/11/2024 14:41:26
== END 2024-04-10 23:59 | disposition home or self-care (01) ==
LOC: RAD 07:52
PROVIDERS: PCP Physician Assistant; Visit Provider Nurse Practitioner
DX: R06.00 Dyspnea, unspecified (principal); I48.91 Unspecified atrial fibrillation; I10 Essential (primary) hypertension; E78.5 Hyperlipidemia, unspecified; I25.10 Atherosclerotic heart disease of native coronary artery without angina pectoris; R93.1 Abnormal findings on diagnostic imaging of heart and coronary circulation; R00.2 Palpitations; R94.31 Abnormal electrocardiogram [ECG] [EKG]
CPT/HCPCS: 71275; 78452; 93017; 93018; 93306; A9502; J2785; Q9967

== ENCOUNTER 2024-04-13 09:26 | Outpatient (CLI) | payer MEDICARE, SELFPAY ==
[2024-04-13 10:35] LABS: Basophils % 0.9 % (0.1-2.0); Eosinophils # 0.1 K/mm3 (0.0-0.4); Eosinophils % 1.4 % (0.1-12.0); Hematocrit 40.8 % (42.0-52.0); Hemoglobin 13.3 g/dL (14.1-18.0); Lymphocytes # 1.5 K/mm3 (0.7-4.5); Lymphocytes % 29.8 % (10-50); Mean Corpuscular HGB Conc 32.6 g/dL (31.8-35.4); Mean Corpuscular Hemoglobin 32.6 pg (27.0-31.2); Mean Corpuscular Volume 99.9 fl (80-94); Mean Platelet Volume 9.1 fl (7.4-10.4); Monocytes # 0.3 K/mm3 (0.1-1.0); Monocytes % 6.9 % (1.7-9.3); Platelet Count 199 K/mm3 (142-424); Red Blood Count 4.09 M/mm3 (4.60-6.20); Red Cell Distribution Width 13.8 % (11.5-17.5); White Blood Count 4.9 K/mm3 (4.8-10.8)
[2024-04-13 11:09] LABS: Alanine Aminotransferase 25 U/L (12-78); Alkaline Phosphatase 48 U/L (38-126); Anion Gap 13.3 mEq/L (5-15); Aspartate Amino Transferase 29 U/L (17-59); Bilirubin,Indirect 0.5 mg/dL (0.0-0.9); Bilirubin,Total 0.5 mg/dl (0.2-1.3); Bilirubin,Unconjugated 0.6 mg/dL (0.0-1.1); Blood Urea Nitrogen 16 mg/dl (9-20); Calcium 9.4 mg/dl (8.4-10.2); Carbon Dioxide 25 mmol/L (22.0-30.0); Chloride 106 mmol/L (98-107); Chol/HDL Ratio 2.9 (1-3.5); Cholesterol 116 mg/dl (140-200); Estimated Glomerular Filt Rate 52 ml/min (>60); GFR (African American) 63 ML/MIN (>60); Glucose 91 mg/dl (74-100); HDL Cholesterol 40 mg/dl (40-60); Magnesium 2.1 mg/dl (1.6-2.3); Potassium 4.3 mmoL/L (3.5-5.1); Sodium 140 mmol/L (136-145); Total Protein,Serum 6.6 g/dl (6.3-8.2); Triglycerides 115 mg/dl (30-150); VLDL Cholesterol 23 mg/dL (0-40)
[2024-04-13 11:20] LABS: Direct LDL Cholesterol 54.15 mg/dL (100-129)
[2024-04-13 11:27] LABS: Free T4 (Free Thyroxine) 1.43 ng/dl (0.78-2.19)
[2024-04-13 11:41] LABS: Thyroid Stimulating Hormone 2.08 uIU/mL (0.465-4.68)
== END 2024-04-13 23:59 | disposition home or self-care (01) ==
LOC: LAB 09:31
PROVIDERS: PCP Physician Assistant; Visit Provider Nurse Practitioner
DX: R94.31 Abnormal electrocardiogram [ECG] [EKG] (principal); R93.1 Abnormal findings on diagnostic imaging of heart and coronary circulation; R06.09 Other forms of dyspnea; I48.0 Paroxysmal atrial fibrillation; E78.5 Hyperlipidemia, unspecified; I11.9 Hypertensive heart disease without heart failure; I25.10 Atherosclerotic heart disease of native coronary artery without angina pectoris
CPT/HCPCS: 36415; 80048; 80061; 80076; 83735; 84439; 84443; 85025

== ENCOUNTER 2024-04-20 08:42 | Day surgery (SDC) | payer MEDICARE, SELFPAY ==
[2024-04-20] VITALS (11 sets, daily range): BP systolic 114–164; BP diastolic 69–89; PULSE 59–71; RESP 19; O2SAT 94–99; BMI 28.5
--- NOTE | 2024-04-20 07:15 | IR_ITS ---
APPROVED REPORT Patient Location: Outpatient Survey Cad Technician: GARFIELD Galan RT (R) PROCEDURES Selective coronary angiogram Drug-eluting stent deployment to the mid dominant right coronary artery Drug-eluting stent deployment to the proximal circumflex artery INDICATION Coronary artery disease, High risk abnormal Myoview, Angina pectoris Informed consent was obtained prior to the procedure. COMPLICATIONS NONE Estimated Blood Loss: LESS THAN 10 ML TECHNIQUE One percent lidocaine used to anesthetize the right anterior aspect of the wrist. The right radial artery was accessed via the Seldinger technique. A 6 [place] sheath was placed in the right radial artery. 2.5 mg of Verapamil, 800 mcg of nitroglycerin, 1mg Lidocaine and 5000 U Heparin were given through the arterial sheath. The papa catheter was also used to perform selective coronary angiogram. At the end the diagnostic angiogram therapeutic heparin was administered giving a therapeutic ACT and the guide catheter was placed in the right coronary artery followed by Choice PT extra-support wire. A 4 mm x 22 mm [place] frontier stent was deployed at 14 gutierrez reducing the severe stenosis to 0%. CASSI-3 flow was present before and after the procedure. Following this the guide catheter was placed in left main artery followed by the wire being placed on the circumflex artery. A 3.5 x 18 mm [place] frontier stent was deployed in the proximal segment at 14 gutierrez reducing the severe stenosis to 0%. CASSI-3 flow was present before and after the procedure. At the end the procedure the apparatus was removed the sheath was removed and hemostasis was achieved using TR banding patient was transferred to the postop holding in stable condition ANGIOGRAPHIC RESULTS The left main artery Normal The left anterior descending artery Has proximal smooth 20% stenoses with mid vessel 20% stenoses The circumflex artery Nondominant yet still large and has a proximal eccentric 70% stenosis followed by an eccentric 50% stenosis The right coronary artery Large dominant and has a proximal 30 to 40% stenosis with a mid vessel 70% stenosis The BAKER ventriculogram reveals Not performed The left ventricular end-diastolic pressure Not measured IMPRESSION Severe two-vessel coronary disease as described above Successful stenting of the mid dominant right coronary severe disease reduced to 0% with 1 drug-eluting stent Successful stenting of the proximal circumflex artery severe disease reduced to 0% with 1 drug-eluting stent PLAN 1. Aspirin and Plavix 2. LDL less than 55 to be achieved with high intensity statin 3. Avoidance of tobacco products 4. Risk factor modification 5. Cardiac rehabilitation Electronically signed by : Niall Neumann MD 04/20/2024 13:33:14
[2024-04-20 09:11] LABS: Basophils # 0.1 K/mm3 (0-0.2); Basophils % 0.9 % (0.1-2.0); Eosinophils # 0.2 K/mm3 (0.0-0.4); Eosinophils % 3.2 % (0.1-12.0); Hematocrit 39.9 % (42.0-52.0); Hemoglobin 12.8 g/dL (14.1-18.0); Lymphocytes # 1.5 K/mm3 (0.7-4.5); Lymphocytes % 30.7 % (10-50); Mean Corpuscular HGB Conc 32.1 g/dL (31.8-35.4); Mean Corpuscular Hemoglobin 32.6 pg (27.0-31.2); Mean Corpuscular Volume 101.3 fl (80-94); Monocytes # 0.3 K/mm3 (0.1-1.0); Neutrophils # 2.8 K/mm3 (1.8-7.8); Neutrophils % 58.2 % (37.0-80.0); Platelet Count 188 K/mm3 (142-424); Red Blood Count 3.94 M/mm3 (4.60-6.20); Red Cell Distribution Width 13.5 % (11.5-17.5); White Blood Count 4.9 K/mm3 (4.8-10.8)
[2024-04-20 09:23] LABS: Chloride 109 mmol/L (98-107); Potassium 3.6 mmoL/L (3.5-5.1); Sodium 139 mmol/L (136-145)
[2024-04-20 09:26] LABS: Blood Urea Nitrogen 17 mg/dl (9-20); Creatinine Clearance Estimated 62 mL/min (50-200); Estimated Glomerular Filt Rate 58 ml/min (>60); GFR (African American) 70 ML/MIN (>60)
[2024-04-20 09:27] LABS: Anion Gap 9.6 mEq/L (5-15); Calcium 8.7 mg/dl (8.4-10.2); Carbon Dioxide 24 mmol/L (22.0-30.0); Glucose 98 mg/dl (74-100)
[2024-04-20] MEDS: VERAPAMIL 2.5MG/ML 2ML VIAL 2.5 MG IV (13:14)
[2024-04-20] MEDS: diphenhydrAMINE 50MG/ML VIAL 50 MG IV (13:14)
[2024-04-20] MEDS: HEPARIN 1,000 UNITS/ML 10ML VIAL (CATH LAB) 10000 UNIT IV (13:15)
[2024-04-20] MEDS: NITROGLYCERIN 800MCG/8ML SYR (CATH LAB) 800 MCG IA (13:15)
[2024-04-20] MEDS: LIDOCAINE 1% 10ML MDV 20 ML IJ (13:15)
[2024-04-20] MEDS: HEPARIN 1,000 UNITS/500ML NS (CATH LAB) 3000 UNIT IV (13:15)
[2024-04-20] MEDS: FENTANYL 100MCG/2ML VIAL 50 MCG IV (13:16)
[2024-04-20] MEDS: MIDAZOLAM HCL 1MG/1ML 5ML VIAL 1 MG IV (13:16)
[2024-04-20] MEDS: 0.9 % SODIUM CHLORIDE 500 ML 25 ML IV (13:16)
[2024-04-20] MEDS: CLOPIDOGREL 300MG TABLET 600 MG PO (13:46)
[2024-04-20] MEDS: IOPAMIDOL-370 (76%);100ML BOTTLE 90 ML IV (13:48)
[2024-04-20 13:49] LABS: CATHL Activated Clotting Time 275 SEC (74-125)
--- NOTE | 2024-04-20 14:00 | SUR.PHASEII ---
Updated visitor on POC, stated he would remain in waiting room until pt is d/c
== END 2024-04-20 16:21 | disposition home or self-care (01) ==
PROVIDERS: PCP Physician Assistant; Visit Provider Internal Medicine
DX: R93.1 Abnormal findings on diagnostic imaging of heart and coronary circulation (principal); R06.09 Other forms of dyspnea; I25.118 Atherosclerotic heart disease of native coronary artery with other forms of angina pectoris; R94.31 Abnormal electrocardiogram [ECG] [EKG]; Z79.899 Other long term (current) drug therapy; I48.0 Paroxysmal atrial fibrillation; Z79.01 Long term (current) use of anticoagulants; E78.5 Hyperlipidemia, unspecified
CPT/HCPCS: 80048; 85025; 85347; 92928; 93454; 99152; C1725; C1769; C1874; C9600; J1644; J2250; J3010; Q9967

== ENCOUNTER 2024-04-24 08:14 | Outpatient (CLI) | payer MEDICARE, SELFPAY ==
[2024-04-24 08:26] LABS: Basophils # 0.1 K/mm3 (0-0.2); Basophils % 1.1 % (0.1-2.0); Eosinophils # 0.1 K/mm3 (0.0-0.4); Eosinophils % 2.5 % (0.1-12.0); Hematocrit 39.3 % (42.0-52.0); Hemoglobin 12.9 g/dL (14.1-18.0); Lymphocytes # 1.6 K/mm3 (0.7-4.5); Lymphocytes % 28.5 % (10-50); Mean Corpuscular HGB Conc 32.7 g/dL (31.8-35.4); Mean Corpuscular Volume 101.1 fl (80-94); Mean Platelet Volume 9.3 fl (7.4-10.4); Monocytes # 0.3 K/mm3 (0.1-1.0); Monocytes % 6.2 % (1.7-9.3); Neutrophils # 3.4 K/mm3 (1.8-7.8); Neutrophils % 61.7 % (37.0-80.0); Platelet Count 204 K/mm3 (142-424); Red Blood Count 3.89 M/mm3 (4.60-6.20); Red Cell Distribution Width 14.3 % (11.5-17.5); White Blood Count 5.5 K/mm3 (4.8-10.8)
[2024-04-24 11:54] LABS: Anion Gap 12.6 mEq/L (5-15); Blood Urea Nitrogen 16 mg/dl (9-20); Calcium 9.7 mg/dl (8.4-10.2); Carbon Dioxide 25 mmol/L (22.0-30.0); Chloride 106 mmol/L (98-107); Estimated Glomerular Filt Rate 58 ml/min (>60); GFR (African American) 70 ML/MIN (>60); Glucose 84 mg/dl (74-100); Potassium 4.6 mmoL/L (3.5-5.1); Sodium 139 mmol/L (136-145)
== END 2024-04-24 23:59 | disposition home or self-care (01) ==
LOC: LAB 08:14
PROVIDERS: PCP Physician Assistant; Visit Provider Internal Medicine
DX: I25.10 Atherosclerotic heart disease of native coronary artery without angina pectoris (principal); Z95.5 Presence of coronary angioplasty implant and graft
CPT/HCPCS: 36415; 80048; 85025

== ENCOUNTER 2024-05-25 10:55 | Outpatient (RCR) | payer MEDICARE, SELFPAY | END 2024-07-21 14:00 | disposition home or self-care (01) | LOC: PT 10:55 | PROVIDERS: Visit Provider Internal Medicine | DX: Z98.61 Coronary angioplasty status (principal) | CPT/HCPCS: 93798 ==

== ENCOUNTER 2025-01-31 08:53 | Outpatient (CLI) | payer MEDICARE, SELFPAY ==
[2025-01-31 09:43] LABS: Basophils # 0.1 K/mm3 (0-0.2); Basophils % 0.9 % (0.1-2.0); Eosinophils # 0.1 K/mm3 (0.0-0.4); Eosinophils % 1.2 % (0.1-12.0); Hemoglobin 12.9 g/dL (14.1-18.0); Lymphocytes # 1.2 K/mm3 (0.7-4.5); Lymphocytes % 21.2 % (10-50); Mean Corpuscular HGB Conc 33.9 g/dL (31.8-35.4); Mean Corpuscular Hemoglobin 32.5 pg (27.0-31.2); Mean Corpuscular Volume 95.7 fl (80-94); Mean Platelet Volume 10.9 fl (7.4-10.4); Monocytes # 0.4 K/mm3 (0.1-1.0); Monocytes % 7.7 % (1.7-9.3); Neutrophils % 68.8 % (37.0-80.0); Platelet Count 187 K/mm3 (142-424); Red Blood Count 3.97 M/mm3 (4.60-6.20); Red Cell Distribution Width 12.4 % (11.5-17.5); White Blood Count 5.8 K/mm3 (4.8-10.8)
[2025-01-31 10:22] LABS: Chloride 106 mmol/L (98-107); Potassium 4.4 mmoL/L (3.5-5.1); Sodium 139 mmol/L (136-145)
[2025-01-31 10:25] LABS: Alanine Aminotransferase 22 U/L (12-78); Alkaline Phosphatase 58 U/L (38-126); Anion Gap 9.4 mEq/L (5-15); Aspartate Amino Transferase 31 U/L (17-59); Bilirubin,Direct 0.1 mg/dl (0.0-0.4); Bilirubin,Indirect 0.6 mg/dL (0.0-0.9); Bilirubin,Total 0.7 mg/dl (0.2-1.3); Bilirubin,Unconjugated 0.6 mg/dL (0.0-1.1); Blood Urea Nitrogen 22 mg/dl (9-20); Carbon Dioxide 28 mmol/L (22.0-30.0); Cholesterol 126 mg/dl (140-200); Estimated Glomerular Filt Rate 48 ml/min (>60); GFR (African American) 58 ML/MIN (>60); Total Protein,Serum 6.6 g/dl (6.3-8.2); Triglycerides 114 mg/dl (30-150); VLDL Cholesterol 23 mg/dL (0-40)
[2025-01-31 10:26] LABS: Calcium 9.2 mg/dl (8.4-10.2); Chol/HDL Ratio 2.9 (1-3.5); Glucose 117 mg/dl (74-100); HDL Cholesterol 43 mg/dl (40-60)
[2025-01-31 10:36] LABS: Direct LDL Cholesterol 55.27 mg/dL (100-129)
[2025-01-31 10:41] LABS: Free T4 (Free Thyroxine) 0.88 ng/dl (0.78-2.19)
[2025-01-31 10:56] LABS: Thyroid Stimulating Hormone 3.61 uIU/mL (0.465-4.68)
== END 2025-01-31 23:59 | disposition home or self-care (01) ==
LOC: LAB 08:55
PROVIDERS: PCP Physician Assistant; Visit Provider Nurse Practitioner
DX: I10 Essential (primary) hypertension (principal); E78.5 Hyperlipidemia, unspecified; I25.10 Atherosclerotic heart disease of native coronary artery without angina pectoris
CPT/HCPCS: 36415; 80048; 80061; 80076; 84439; 84443; 85025